=== PATIENT | female | born 1950 | race Caucasian/White ===

== ENCOUNTER → 2016-08-10 | Outpatient (CLI) | payer OTHER, MEDICAID | LOC: BHFA 08:30 | PROVIDERS: ATTEND Internal Medicine Cardiovascular Disease | DX: R06.00 Dyspnea, unspecified (principal); R07.9 Chest pain, unspecified | CPT/HCPCS: 78452; 93017; 93306; A9500 ==

== ENCOUNTER → 2016-11-18 | Outpatient (CLI) | payer OTHER, MEDICAID | LOC: FIMAGING 10:35 | PROVIDERS: ATTEND Nurse Practitioner Family | DX: Z12.31 Encounter for screening mammogram for malignant neoplasm of breast (principal); R06.00 Dyspnea, unspecified; Z80.3 Family history of malignant neoplasm of breast | CPT/HCPCS: G0202 ==

== ENCOUNTER → 2017-08-04 | Outpatient (CLI) | payer OTHER, MEDICAID | LOC: FIMAGING 08:20 | PROVIDERS: ATTEND Internal Medicine Gastroenterology | DX: K21.9 Gastro-esophageal reflux disease without esophagitis (principal) ==

== ENCOUNTER 2017-08-26 08:36 | Emergency (ER) | payer OTHER, MEDICAID ==
--- NOTE | 2017-08-26 09:04 | EDPHY ---
H & P Time Seen by Provider: 08/26/17 08:52 HPI/ROS: CHIEF COMPLAINT: Thoracic back pain post mechanical fall HISTORY OF PRESENT ILLNESS: 67-year-old female history of thrombophilia, chronic anticoagulation with warfarin, drove to the ER stating that shortly prior to arrival she was in her house, felt a brief episode of dizziness, grabbed onto the door handle however the lower hinge of the door broke away causing her to fall backward impacting her thoracic region against the edge of the bathtub. She is complaining of reproducible pain with deep inspiration or movement. She placed arnica on the area. There was no head injury. No loss of consciousness. This was not a syncopal episode. No urinary abnormality. No dyspnea. PRIMARY CARE PROVIDER: [facility] REVIEW OF SYSTEMS: A ten point review of systems was performed and is negative with the exception of the items mentioned in the HPI PAST MEDICAL & SURGICAL HISTORY: Chronic intermittent low back pain. Thrombophilia. SOCIAL HISTORY:Nonsmoker no alcohol use. PHYSICAL EXAM (Prior to examination, patient consented to physical exam, hands were washed and my usual and customary physical exam procedures followed) 1) GENERAL: Well-developed, well-nourished, alert and oriented. Appears to be in no acute distress. 2) HEAD: Normocephalic, atraumatic 3) HEENT: Pupils equal, round, reactive to light bilaterally. Sclera anicteric. 4) NECK: Full range of motion, no meningeal signs. 5) LUNGS: Clear auscultation bilaterally, no wheezes, no rhonchi, no retractions. 6) HEART: Regular rate and rhythm, no murmur, no heave, no gallop. 7) ABDOMEN: No guarding, no rebound, no focal tenderness, negative McBurney's, negative Chavarria's, negative Rovsing's, negative peritoneal sign, 8) MUSCULOSKELETAL: Moving all extremities, no focal areas of tenderness, no obvious trauma. No peripheral edema or discoloration. 9) BACK: Difficulty fully differentiate true midline versus just lateral of midline mid thoracic back pain. No visible trauma.. No CVA tenderness, no midline vertebral tenderness, no fluctuance, no step-off, no obvious trauma, no visual or palpable abnormality. Patella, Achilles reflexes intact to bilateral strength 5/5 10) SKIN: No rash, no petechiae. 11) NEURO: Awake, alert, and oriented to person, place and time. Answers questions appropriately. There were no obvious focal neurologic abnormalities. No cerebellar dysfunction. Normal steady gait. Upper and lower extremities bilaterally with strength 5 / 5, reflexes 2+.. DIFFERENTIAL DIAGNOSIS: In no particular order, including but not limited to, fracture, sprain/strain, cauda equina, spinal infectious etiology. MEDICAL DECISION MAKING Re-evaluation with serial exams in the ER. She has been given lidocaine patch. Doubt pneumothorax, doubt thoracic fracture. Doubt syncope. Doubt epidural hematoma. I do not think that emergent MRI is indicated. However strict return precautions have been provided. If the patient develops new or worsening symptoms she needs to return to the ER immediately. She feels comfortable being discharged. Discharged with Flexeril, incentive spirometer and lidocaine patches. All questions and concerns addressed by myself. Care of patient under supervision of secondary supervising physician Dr Noriega. Smoking Status: Never smoked Constitutional: Initial Vital Signs Temperature (C) 36.4 C 08/26/17 08:37 Heart Rate 69 08/26/17 08:37 Respiratory Rate 18 08/26/17 08:37 Blood Pressure 143/79 H 08/26/17 08:37 O2 Sat (%) 97 08/26/17 08:37 O2 Delivery Mode Room Air Allergies/Adverse Reactions: erythromycin base [Erythromycin Base] Allergy (Severe, Verified 09/01/13 20:37) SEVERE ABDOMEN PAIN tetracycline [Tetracycline] Allergy (Severe, Verified 09/01/13 20:37) SECONDARY INFECTION aspirin [Aspirin] Allergy (Intermediate, Verified 09/01/13 20:37) PAIN ABDOMEN Sulfa (Sulfonamide Antibiotics) Allergy (Intermediate, Verified 09/01/13 20:37) INNER EAR DISTRUBANCE Penicillins Allergy (Unknown, Verified 09/01/13 20:37) propoxyphene HCl [From Darvon] Allergy (Unknown, Verified 09/01/13 20:37) NIGHT SHADE VEGS Allergy (Severe, Uncoded 09/01/13 20:37) INCREASES FIBRAMALGIA SYMPTOMS CLINERL Allergy (Intermediate, Uncoded 09/01/13 20:37) INNER EAR DISTRUBANCE GLUTEN INTOL Allergy (Unknown, Uncoded 09/01/13 20:37) LACTOSE INTOL Allergy (Unknown, Uncoded 09/01/13 20:37) Home Medications: Medication Instructions Recorded PREGABALIN [Lyrica] 150 mg PO DAILY 05/03/10 Thyroid,Pork [Home Thyroid] 60 mg PO 05/03/10 Warfarin Sodium [Coumadin] 10 mg PO DAILY16 05/03/10 Cyclobenzaprine [Flexeril 10 MG 10 mg PO TID #15 tab 08/26/17 (RX)] Lidocaine [Lidoderm] 1 each TP BID #30 adh..patch 08/26/17 MDM/Departure - MDM Imaging Results: Imaging Impressions Thoracic Spine X-Ray 08/26/17 09:00 Impression: 1. No acute abnormality seen about the thoracic spine. 2. Mild disk space narrowing with marginal osteophytes mid to lower thoracic spine. Images reviewed myself Medications Given: Discontinued Medications Miscellaneous Medication (Icy Hot Lidocaine/Menthol 4%/1% Patch) 1 patch TD EDNOW ONE Stop: 08/26/17 09:06 Last Admin: 08/26/17 09:10 Dose: 1 patch - Depart Disposition: Home, Routine, Self-Care Clinical Impression: Acute thoracic back pain Qualifiers: Back pain laterality: bilateral Qualified Code(s): M54.6 - Pain in thoracic spine Condition: Good Instructions: Back Pain (ED) Additional Instructions: Return to the ER if you develop shortness of breath, worsening pain, numbness or tingling or any other symptoms that concern you Prescriptions: Cyclobenzaprine [Flexeril 10 MG (RX)] 10 mg PO TID #15 tab Lidocaine [Lidoderm] 1 each TP BID #30 adh..patch Referrals: Alicia Haq, GARMENT TURNER [Primary Care Provider] - 1-2 days without fail
[2017-08-26] MEDS ORDERED: LIDOCAINE 4%/MENTHOL 1% PATCH TD ONE (09:05)
[2017-08-26 10:19] VITALS: BP 127/66
[2017-08-26] MEDS ORDERED: PATCH REMOVAL 1 EA PATCH TD SCH (21:00)
== END 2017-08-26 10:18 | disposition home or self-care (01) ==
DX: S29.9XXA Unspecified injury of thorax, initial encounter (principal); Z79.01 Long term (current) use of anticoagulants; W01.198A Fall on same level from slipping, tripping and stumbling with subsequent striking against other object, initial encounter

== ENCOUNTER → 2018-01-20 | Outpatient (CLI) | payer OTHER, MEDICAID | LOC: FIMAGING 15:13 | PROVIDERS: ATTEND Nurse Practitioner Family | DX: Z12.31 Encounter for screening mammogram for malignant neoplasm of breast (principal); Z80.3 Family history of malignant neoplasm of breast ==

== ENCOUNTER 2018-07-05 14:57 | Emergency (ER) | payer OTHER, MEDICAID ==
[2018-07-05] MEDS ORDERED: METOCLOPRAMIDE 10 MG/2 ML VIAL IVP ONE (16:01)
[2018-07-05] MEDS ORDERED: DEXAMETHASONE 10 MG/ML VIAL IVP ONE (16:01)
[2018-07-05] MEDS ORDERED: NS 500 ML IV ONE (16:01)
[2018-07-05] MEDS ORDERED: HYDROmorphONE/DILAUDID 2 MG/ML INJ IVP ONE (16:01)
--- NOTE | 2018-07-05 16:08 | EDPHY ---
H & P Time Seen by Provider: 07/05/18 15:46 HPI/ROS: HPI Headache. 68-year-old female by private vehicle. This patient complains of a gradual onset posterior headache onset Luis Alfredo evening. She reports that it has steadily been getting worse. She describes it as posterior and aching with waves of more intense pain and discomfort. She describes it mostly in the occipital region. She has had migraines in the past but they have never lasted this long or been this severe. She is on Coumadin for a hereditary thrombotic disorder. She has had some associated nausea and mild photophobia. No vomiting. ROS: Constitutional: No fever, no chills. No weakness. Eyes: No discharge. No changes in vision. ENT: No sore throat. No nasal congestion or rhinorrhea. Respiratory: No cough. No shortness of breath. Cardiac: No chest pain, no palpitations. Gastrointestinal: No abdominal pain, no vomiting, no diarrhea. Genitourinary: No hematuria. No dysuria or increased frequency with urination. Musculoskeletal: No back pain. No neck pain. No myalgias or arthralgias. Skin: No rashes. Neurological: As above. No focal weakness or altered sensation. Past medical history: Thrombophilia, PE x4, on Coumadin, hypothyroid, fibromyalgia, shoulder surgery, concussion, pleurisy. Social history: Nonsmoker. Lives alone. Has cats. No alcohol. Physical Exam: General Appearance: Alert, she appears uncomfortable but not in distress. This patient is responding to questions appropriately and in full sentences. This patient appears well-hydrated and well-nourished. Eyes: Pupils equal and round and reactive to light at 3-2 mm bilaterally, no pallor or injection. No lid edema, erythema or injection. Mild photophobia. No nystagmus. Respiratory: There are no retractions, lungs are clear to auscultation with good air movement bilaterally. Cardiovascular: Regular rate and rhythm. No murmur. Gastrointestinal: Abdomen is soft and nontender, no masses, bowel sounds normal. No focal tenderness at McBurney's point. No Chavarria sign. Neurological: Motor sensory function is grossly intact. Cranial nerves are normal. Gait is normal. Skin: Warm and dry, no rashes. Musculoskeletal: Neck is supple and nontender. She does have some tenderness on palpation involving the suboccipital area. Otherwise she is able to flex her neck without significant discomfort. Extremities are symmetrical. All joints range without pain or impingement. Psychiatric: No agitation. No depression. Database: EKG: Imaging: CT head without contrast: Negative. Results were discussed with staff radiologist Dr. Mike Kitchen. Procedures: Emergency department course: Triage vital signs reviewed. She is hypertensive. Vital signs are otherwise normal. IV was placed. She was placed on a monitor. She will be started on IV normal saline with 500 cc to be given over the next hour. She will be sent for noncontrast CT scan of her head. Initially to treat her headache she will receive 0.5 mg of IV hydromorphone, 25 mg of IV Benadryl, 10 mg of IV Reglan and 10 mg of IV Decadron. She consents to workup. 5:25 p.m., patient re-evaluated, resting comfortably at this time. She reports resolution of her headache. She is feeling much better and smiling. Repeat neurologic exam is nonfocal. Her neck is supple. No pain on flexion of her neck. Results of her CT imaging and blood work discussed with her. She does feel comfortable going home at this time. We got her up. She was ambulatory under her own power. She will be discharged to home with a sober ride. Follow- up and return to emergency department precautions were thoroughly reviewed with her. All of her questions were answered. She was discharged from the emergency department in good condition. Differential Diagnosis: The differential diagnosis on this patient includes but is not limited to migraine headache syndrome, tension headache, subarachnoid hemorrhage, thrombotic etiology. Meningitis, encephalitis, temporal arteritis unlikely. This represents a partial list of diagnoses considered. These considerations are based on history, physical exam, past history, reassessment and diagnostic testing. Smoking Status: Never smoked Constitutional: Initial Vital Signs Temperature (C) 36.8 C 07/05/18 15:17 Heart Rate 67 07/05/18 15:17 Respiratory Rate 16 07/05/18 15:17 Blood Pressure 163/90 H 07/05/18 15:17 O2 Sat (%) 97 07/05/18 15:17 O2 Delivery Mode Room Air Allergies/Adverse Reactions: erythromycin base [Erythromycin Base] Allergy (Severe, Verified 09/01/13 20:37) SEVERE ABDOMEN PAIN tetracycline [Tetracycline] Allergy (Severe, Verified 09/01/13 20:37) SECONDARY INFECTION aspirin [Aspirin] Allergy (Intermediate, Verified 09/01/13 20:37) PAIN ABDOMEN Sulfa (Sulfonamide Antibiotics) Allergy (Intermediate, Verified 09/01/13 20:37) INNER EAR DISTRUBANCE Penicillins Allergy (Unknown, Verified 09/01/13 20:37) propoxyphene HCl [From Darvon] Allergy (Unknown, Verified 09/01/13 20:37) NIGHT SHADE VEGS Allergy (Severe, Uncoded 09/01/13 20:37) INCREASES FIBRAMALGIA SYMPTOMS CLINERL Allergy (Intermediate, Uncoded 09/01/13 20:37) INNER EAR DISTRUBANCE GLUTEN INTOL Allergy (Unknown, Uncoded 09/01/13 20:37) LACTOSE INTOL Allergy (Unknown, Uncoded 09/01/13 20:37) Home Medications: Medication Instructions Recorded PREGABALIN [Lyrica] 150 mg PO DAILY 05/03/10 Thyroid,Pork [Grants Thyroid] 60 mg PO 05/03/10 Warfarin Sodium [Coumadin] 10 mg PO DAILY16 05/03/10 Cyclobenzaprine [Flexeril 10 MG 10 mg PO TID #15 tab 08/26/17 (RX)] Lidocaine [Lidoderm] 1 each TP BID #30 adh..patch 08/26/17 Medical Decision Making - Diagnostics Imaging Results: Imaging Impressions Head CT 07/05/18 16:01 Impression: Nothing acute identified. Specifically no evidence for hemorrhage or source for headache identified. Results called to Dr. Whitney at 4:40 PM. General information for patients regarding this examination can be found at [email or web address]. If you have questions or comments about this report, please contact me at (hospital) or [phone] (cell). - Data Points Laboratory Results: Laboratory Results 07/05/18 16:10 07/05/18 16:10 07/05/18 07/05/18 07/05/18 16:10 16:10 16:10 WBC 5.96 10^3/uL 10^3/uL (3.80-9.50) RBC 4.61 10^6/uL 10^6/uL (4.18-5.33) Hgb 13.8 g/dL g/dL (12.6-16.3) Hct 41.7 % % (38.0-47.0) MCV 90.5 fL fL (81.5-99.8) MCH 29.9 pg pg (27.9-34.1) MCHC 33.1 g/dL g/dL (32.4-36.7) RDW 14.5 % % (11.5-15.2) Plt Count 234 10^3/uL 10^3/uL (150-400) MPV 9.6 fL fL (8.7-11.7) Neut % (Auto) 48.6 % % (39.3-74.2) Lymph % (Auto) 35.4 % % (15.0-45.0) Cecil % (Auto) 13.1 % H % (4.5-13.0) Eos % (Auto) 2.0 % % (0.6-7.6) Baso % (Auto) 0.7 % % (0.3-1.7) Nucleat RBC Rel Count 0.0 % % (0.0-0.2) Absolute Neuts (auto) 2.90 10^3/uL 10^3/uL (1.70-6.50) Absolute Lymphs (auto) 2.11 10^3/uL 10^3/uL (1.00-3.00) Absolute Monos (auto) 0.78 10^3/uL 10^3/uL (0.30-0.80) Absolute Eos (auto) 0.12 10^3/uL 10^3/uL (0.03-0.40) Absolute Basos (auto) 0.04 10^3/uL 10^3/uL (0.02-0.10) Absolute Nucleated RBC 0.00 10^3/uL 10^3/uL (0-0.01) Immature Gran % 0.2 % % (0.0-1.1) Immature Gran # 0.01 10^3/uL 10^3/uL (0.00-0.10) PT 29.2 SEC H SEC (12.0-15.0) INR 2.77 H (0.83-1.16) Sodium 137 mEq/L mEq/L (135-145) Potassium 4.0 mEq/L mEq/L (3.5-5.2) Chloride 105 mEq/L mEq/L (97-110) Carbon Dioxide 25 mEq/l mEq/l (22-31) Anion Gap 7 mEq/L mEq/L (6-14) BUN 15 mg/dL mg/dL (7-23) Creatinine 0.8 mg/dL mg/dL (0.6-1.0) Estimated GFR > 60 Glucose 88 mg/dL mg/dL (70-100) Calcium 8.8 mg/dL mg/dL (8.5-10.4) Medications Given: Discontinued Medications Dexamethasone (Decadron Injection) 10 mg IVP EDNOW ONE Stop: 07/05/18 16:02 Last Admin: 07/05/18 16:11 Dose: 10 mg Diphenhydramine HCl (Benadryl Injection) 25 mg IVP EDNOW ONE Stop: 07/05/18 16:02 Last Admin: 07/05/18 16:11 Dose: 25 mg Hydromorphone HCl (Dilaudid) 0.5 mg IVP EDNOW ONE Stop: 07/05/18 16:02 Last Admin: 07/05/18 16:11 Dose: 0.5 mg Sodium Chloride (Ns) 500 mls @ 0 mls/hr IV ONCE ONE; Wide Open PRN Reason: Protocol Stop: 07/05/18 16:02 Last Admin: 07/05/18 16:10 Dose: 500 mls Metoclopramide HCl (Reglan Injection) 10 mg IVP EDNOW ONE Stop: 07/05/18 16:02 Last Admin: 07/05/18 16:11 Dose: 10 mg Departure - Departure Disposition: Home, Routine, Self-Care Clinical Impression: Headache Condition: Good Instructions: Acute Headache (ED) Additional Instructions: Read and follow provided instructions. Follow-up with your primary care physician in 1-2 days for re-evaluation as discussed. Continue taking her medications as prescribed. Return to the emergency department for return of headache, neck pain, fever, vomiting, confusion or other serious concerns. Referrals: Alicia Haq GUN PERFORATOR LOADER [Primary Care Provider] - As per Instructions
[2018-07-05 16:20] LABS: PLATELET COUNT 234 10^3/uL (150-400)
[2018-07-05 16:29] LABS: INR 2.77 (0.83-1.16); PROTIME(PATIENT) 29.2 SEC (12.0-15.0)
[2018-07-05 17:06] VITALS: BP 142/72
== END 2018-07-05 18:07 | disposition home or self-care (01) ==
DX: R51 Headache (principal); E86.9 Volume depletion, unspecified; D68.59 Other primary thrombophilia; E03.9 Hypothyroidism, unspecified; Z79.01 Long term (current) use of anticoagulants
CPT/HCPCS: 70450; 96361; 96374; 96375; 99285; J1100; J1170; J1200; J2765

== ENCOUNTER 2018-07-13 22:16 | Emergency (ER) | payer OTHER, MEDICAID ==
[2018-07-13] MEDS ORDERED: ONDANSETRON 4MG PREPACK#2 BTL TAKEHOME ONE (22:25)
[2018-07-13] MEDS ORDERED: HALOPERIDOL LACT 5 MG/ML INJ IVP ONE (22:30)
[2018-07-13] MEDS ORDERED: DEXAMETHASONE 10 MG/ML VIAL IVP ONE (22:30)
--- NOTE | 2018-07-13 22:34 | EDPHY ---
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 She was seen here a week ago had a CT scan of the head which was negative. She received a migraine cocktail at that time with resolution of her pain but symptoms returned again. She was seen by her primary care physician on Tuesday and had trigger-point injections with minimal effect. She had been feeling yesterday that she was getting better but this morning she had worsening of left-sided pain in her neck going up to her scalp. She did take a Soma and Percocet about an hour ago with no relief. Says it hurts to move her neck. No fevers or chills. No vision or hearing changes. No nausea or vomiting. Patient did receive morphine 4 mg by EMS and is feeling somewhat improved. Pain is about a 7/10. She did take a fall this morning. She did not hit her head but was feeling sore all over after the fall. Pain is primarily worse in her left paraspinal neck and in her occiput. No pain higher up in the parietal region of the frontal region. ROS: 10 systems were reviewed and were negative except those elements noted in the HPI. PMH: Fibromyalgia, thrombophilia Social History: No smoking, no alcohol, no recreational drug use Family History: non-contributory Physical Exam: Gen: Awake, Alert, No Distress HEENT: Nose: no rhinorrhea Eyes: PERRLA, EOMI Mouth: Moist mucosa Neck: Patient has left paraspinal spasm and tenderness reproducing her presenting complaint. Tenderness along the insertion of the paraspinal muscles on the occiput put also reproducing her presenting complaint. Chest: nontender, lungs clear to auscultation Heart: S1, S2 normal, no murmur Abd: Soft, non-tender, no guarding Back: no CVA tenderness, no midline tenderness Ext: no edema, non-tender Skin: no rash Neuro: CN II-XII intact, Sensation grossly intact, Strength 5/5 in bilateral upper and lower extremities - Personal History Tetanus Vaccine Date: within last ten years - Medical/Surgical History Hx Asthma: No Hx Chronic Respiratory Disease: No Hx Diabetes: No Hx Cardiac Disease: No Hx Renal Disease: No Hx Cirrhosis: No Hx Alcoholism: No Hx HIV/AIDS: No Hx Splenectomy or Spleen Trauma: No Other PMH: thrombophilia, PEx4, hypothyroid, fibromyalgia, L shoulder repair, jaw/sinus surgery, pleurisy, concussion - Social History Smoking Status: Never smoked Constitutional: Initial Vital Signs Temperature (C) 36.5 C 07/13/18 22:22 Heart Rate 73 07/13/18 22:22 Respiratory Rate 16 07/13/18 22:22 Blood Pressure 148/116 H 07/13/18 22:22 O2 Sat (%) 96 07/13/18 22:22 O2 Delivery Mode Room Air Allergies/Adverse Reactions: erythromycin base [Erythromycin Base] Allergy (Severe, Verified 07/13/18 22:21) SEVERE ABDOMEN PAIN tetracycline [Tetracycline] Allergy (Severe, Verified 07/13/18 22:21) SECONDARY INFECTION aspirin [Aspirin] Allergy (Intermediate, Verified 07/13/18 22:21) PAIN ABDOMEN Sulfa (Sulfonamide Antibiotics) Allergy (Intermediate, Verified 07/13/18 22:21) INNER EAR DISTRUBANCE Penicillins Allergy (Unknown, Verified 07/13/18 22:21) propoxyphene HCl [From Darvon] Allergy (Unknown, Verified 07/13/18 22:21) NIGHT SHADE VEGS Allergy (Severe, Uncoded 07/13/18 22:21) INCREASES FIBRAMALGIA SYMPTOMS CLINERL Allergy (Intermediate, Uncoded 07/13/18 22:21) INNER EAR DISTRUBANCE GLUTEN INTOL Allergy (Unknown, Uncoded 07/13/18 22:21) LACTOSE INTOL Allergy (Unknown, Uncoded 07/13/18 22:21) Home Medications: Medication Instructions Recorded PREGABALIN [Lyrica] 150 mg PO DAILY 05/03/10 Thyroid,Pork [[place] Thyroid] 60 mg PO 05/03/10 Warfarin Sodium [Coumadin] 10 mg PO DAILY16 05/03/10 Cyclobenzaprine [Flexeril 10 MG 10 mg PO TID #15 tab 08/26/17 (RX)] Lidocaine [Lidoderm] 1 each TP BID #30 adh..patch 08/26/17 SOMA 07/13/18 Tylenol 07/13/18 Medical Decision Making ED Course/Re-evaluation: Patient's pain is gone after migraine cocktail. She has no red flags for acute neurologic process. Her INR is a little bit low but her pain is completely reproducible musculoskeletal in nature. Plan will be for discharge with follow- up with primary care physician. She had a CT scan a week ago which was normal. Patient is comfortable with this plan. She will follow up with primary care physician for further evaluation. She has no red flags for meningitis or infectious process. - Data Points Laboratory Results: Laboratory Results 07/13/18 22:22 07/13/18 22:22 07/13/18 07/13/18 07/13/18 22:22 22:22 22:22 WBC 11.77 10^3/uL H 10^3/uL (3.80-9.50) RBC 5.21 10^6/uL 10^6/uL (4.18-5.33) Hgb 15.3 g/dL g/dL (12.6-16.3) Hct 45.9 % % (38.0-47.0) MCV 88.1 fL fL (81.5-99.8) MCH 29.4 pg pg (27.9-34.1) MCHC 33.3 g/dL g/dL (32.4-36.7) RDW 14.6 % % (11.5-15.2) Plt Count 413 10^3/uL H 10^3/uL (150-400) MPV 9.4 fL fL (8.7-11.7) Neut % (Auto) 54.6 % % (39.3-74.2) Lymph % (Auto) 32.7 % % (15.0-45.0) Hamlin % (Auto) 10.3 % % (4.5-13.0) Eos % (Auto) 1.6 % % (0.6-7.6) Baso % (Auto) 0.3 % % (0.3-1.7) Nucleat RBC Rel Count 0.0 % % (0.0-0.2) Absolute Neuts (auto) 6.42 10^3/uL 10^3/uL (1.70-6.50) Absolute Lymphs (auto) 3.85 10^3/uL H 10^3/uL (1.00-3.00) Absolute Monos (auto) 1.21 10^3/uL H 10^3/uL (0.30-0.80) Absolute Eos (auto) 0.19 10^3/uL 10^3/uL (0.03-0.40) Absolute Basos (auto) 0.04 10^3/uL 10^3/uL (0.02-0.10) Absolute Nucleated RBC 0.00 10^3/uL 10^3/uL (0-0.01) Immature Gran % 0.5 % % (0.0-1.1) Immature Gran # 0.06 10^3/uL 10^3/uL (0.00-0.10) PT 17.3 SEC H SEC (12.0-15.0) INR 1.40 H (0.83-1.16) APTT 34.0 SEC SEC (23.0-38.0) Sodium 134 mEq/L L mEq/L (135-145) Potassium 4.2 mEq/L mEq/L (3.5-5.2) Chloride 101 mEq/L mEq/L (97-110) Carbon Dioxide 25 mEq/l mEq/l (22-31) Anion Gap 8 mEq/L mEq/L (6-14) BUN 13 mg/dL mg/dL (7-23) Creatinine 1.0 mg/dL mg/dL (0.6-1.0) Estimated GFR 55 Glucose 105 mg/dL H mg/dL (70-100) Calcium 9.8 mg/dL mg/dL (8.5-10.4) Medications Given: Discontinued Medications Dexamethasone (Decadron Injection) 10 mg IVP EDNOW ONE Stop: 07/13/18 22:31 Last Admin: 07/13/18 22:36 Dose: 10 mg Diphenhydramine HCl (Benadryl Injection) 25 mg IVP EDNOW ONE Stop: 07/13/18 22:31 Last Admin: 07/13/18 22:36 Dose: 25 mg Haloperidol Lactate (Haldol Injection) 2.5 mg IVP EDNOW ONE Stop: 07/13/18 22:31 Last Admin: 07/13/18 22:36 Dose: 2.5 mg Departure - Departure Disposition: Home, Routine, Self-Care Clinical Impression: Neck pain Condition: Good Instructions: Neck Pain (ED) Additional Instructions: Follow up with primary care physician 1-2 days for further evaluation. Return to the emergency department for worsening pain, fevers, chills, rash, uncontrolled vomiting, or any other concerns. Referrals: Patient,NotPresent [Unknown] - As per Instructions
[2018-07-13 22:44] LABS: PLATELET COUNT 413 10^3/uL (150-400)
[2018-07-13 22:52] LABS: INR 1.4 (0.83-1.16); PROTIME(PATIENT) 17.3 SEC (12.0-15.0)
[2018-07-14 00:55] VITALS: BP 113/72
== END 2018-07-14 01:04 | disposition home or self-care (01) ==
LOC: EDUNIT#
DX: M54.2 Cervicalgia (principal); R51 Headache; E03.9 Hypothyroidism, unspecified; M79.7 Fibromyalgia
CPT/HCPCS: 96374; 96375; 99284; J1100; J1200; J1630